=== PATIENT | male | born 1970 | race Caucasian/White ===

== ENCOUNTER 2017-11-20 23:44 | Observation (INO) | payer BC ==
[~2017-11-20] VITALS: Ht 172.7 cm; Wt 77.0 kg
[2017-11-20 23:50] VITALS: BP 124/65; PULSE 100; RESP 20; TEMP 98.6; O2SAT 99
[2017-11-21 00:25] VITALS: O2SAT 98
[2017-11-21 00:31] LABS: AUTOMATED NEUTROPHIL # 12.3 TH/MM3 (1.8-7.7); BASOPHIL # 0.2 TH/MM3 (0-0.2); BASOPHIL % 0.9 % (0.0-2.0); EOSINOPHIL # 0.6 TH/MM3 (0-0.4); EOSINOPHIL % 3.1 % (0.0-4.0); HEMATOCRIT 42.8 % (39.0-51.0); HEMOGLOBIN 15.1 GM/DL (13.0-17.0); MEAN CELL VOLUME 85.2 FL (80.0-100.0); MEAN CORPUSCULAR HGB CONC 35.2 % (32.0-36.0); MEAN PLATELET VOLUME 8.1 FL (7.0-11.0); MONOCYTE # 1.3 TH/MM3 (0-0.9); PLATELET COUNT 306 TH/MM3 (150-450); RED BLOOD COUNT 5.03 MIL/MM3 (4.50-5.90); WHITE BLOOD COUNT 18.4 TH/MM3 (4.0-11.0)
[2017-11-21 00:44] LABS: CHLORIDE 103 MEQ/L (98-107); SODIUM (NA) 138 MEQ/L (136-145)
[2017-11-21 00:47] LABS: ALBUMIN 3.8 GM/DL (3.4-5.0); BICARBONATE 30.2 MEQ/L (21.0-32.0); CALCIUM 8.6 MG/DL (8.5-10.1); GLUCOSE,RANDOM 101 MG/DL (74-106)
[2017-11-21 00:48] LABS: BLOOD UREA NITROGEN 13 MG/DL (7-18)
[2017-11-21 00:50] LABS: ALT (GPT) 29 U/L (12-78); AST (GOT) 15 U/L (15-37); GLOMERULAR FILTRATION RATE 71 ML/MIN (>89)
[2017-11-21 00:52] LABS: TOTAL BILIRUBIN ADULT 0.2 MG/DL (0.2-1.0); TOTAL PROTEIN 7.4 GM/DL (6.4-8.2)
[2017-11-21 00:53] LABS: ALKALINE PHOSPHATASE 111 U/L (45-117)
[2017-11-21] MEDS ORDERED: ONDANSETRON HCL 4 MG/2 ML VIAL IV PUSH ONE (01:15)
[2017-11-21 01:25] VITALS: BP 119/80; PULSE 88; RESP 16; O2SAT 99
[2017-11-21] MEDS ORDERED: SODIUM CHLOR 0.9% 1000 ML INJ 1,000 ML IV SCH (01:30)
[2017-11-21] MEDS ORDERED: SODIUM CHLORIDE 0.9% FLUSH 10 ML FLUSH IV FLUSH PRN ×2 (01:30→03:00)
--- NOTE | 2017-11-21 01:35 | PD ---
HPI Chief Complaint: GI Complaint Time Seen by Provider: 01:14 Travel History International Travel<30 days: No Contact w/Intl Traveler<30days: No Traveled to known affect area: No History of Present Illness HPI The patient is a 47-year-old male that around 7:40, right after the races, he began having periumbilical pain. He has a history of diverticulitis and urinary stones that he states the pain is in midline and not more on the right or on the left. He does feel some abdominal distention and has nausea and vomiting. His pain level is 9/10 and is a colicky pain that comes in waves and is sharp. He has never had any abdominal surgeries. His last bowel movement was 8:30 yesterday morning. He is not passing gas since his symptoms started. [facility] Past Medical History Diminished Hearing: No Kidney Stones: Yes Integumentary: Yes (Psoriasis) Tetanus Vaccination: Unknown Influenza Vaccination: No ?: Not Past Surgical History Other Surgery: Yes Social History Alcohol Use: Yes (occasional beer) Tobacco Use: Yes (1 pack per day) Substance Use: Yes (Marijuana) Allergies-Medications (Allergen,Severity, Reaction): Coded Allergies: No Known Allergies (Unverified , 11/20/17) Review of Systems Except as stated in HPI: all other systems reviewed are Neg Physical Exam Narrative GENERAL: The patient is alert, oriented 3 in moderate apparent distress with his abdominal discomfort. His vital signs show heart rate of 100 but otherwise normal. SKIN: Focused skin assessment warm/dry. HEAD: Atraumatic. Normocephalic. EYES: Pupils equal and round. No scleral icterus. No injection or drainage. ENT: No nasal bleeding or discharge. Mucous membranes pink and moist. NECK: Trachea midline. No JVD. CARDIOVASCULAR: Regular rate and rhythm. No murmur appreciated. RESPIRATORY: No accessory muscle use. Clear to auscultation. Breath sounds equal bilaterally. GASTROINTESTINAL: Abdomen soft, non-tender, slightly distended. Hepatic and splenic margins not palpable. Palpation over the periumbilical area completely reproduces patient's pain. MUSCULOSKELETAL: No obvious deformities. No clubbing. No cyanosis. No edema. NEUROLOGICAL: Awake and alert. No obvious cranial nerve deficits. Motor grossly within normal limits. Normal speech. PSYCHIATRIC: Appropriate mood and affect; insight and judgment normal. Data Data Last Documented VS Vital Signs Date Time Temp Pulse Resp B/P (MAP) Pulse Ox O2 Delivery O2 Flow Rate FiO2 11/21/17 01:25 88 16 119/80 (93) 99 Room Air 11/20/17 23:50 98.6 Orders Orders Complete Blood Count With Diff (11/21/17 00:09) Comprehensive Metabolic Panel (11/21/17 00:09) Urinalysis - C+S If Indicated (11/21/17 00:09) Iv Access Insert/Monitor (11/21/17 00:09) Oximetry (11/21/17 00:09) Lipase (11/21/17 00:09) Ondansetron Inj (Zofran Inj) (11/21/17 01:15) Ct Abd/Pel W Iv Contrast(Rout) (11/21/17 01:24) Ecg Monitoring (11/21/17 01:24) Sodium Chloride 0.9% Flush (Ns Flush) (11/21/17 01:30) Sodium Chlor 0.9% 1000 Ml Inj (Ns 1000 M (11/21/17 01:30) Prochlorperazine Inj (Compazine Inj) (11/21/17 02:00) Iohexol 350 Inj (Omnipaque 350 Inj) (11/21/17 02:24) Ketorolac Inj (Toradol Inj) (11/21/17 03:00) Labs Laboratory Tests Test 11/21/17 00:18 White Blood Count 18.4 TH/MM3 Red Blood Count 5.03 MIL/MM3 Hemoglobin 15.1 GM/DL Hematocrit 42.8 % Mean Corpuscular Volume 85.2 FL Mean Corpuscular Hemoglobin 30.0 PG Mean Corpuscular Hemoglobin Concent 35.2 % Red Cell Distribution Width 13.0 % Platelet Count 306 TH/MM3 Mean Platelet Volume 8.1 FL Neutrophils (%) (Auto) 67.0 % Lymphocytes (%) (Auto) 22.0 % Monocytes (%) (Auto) 7.0 % Eosinophils (%) (Auto) 3.1 % Basophils (%) (Auto) 0.9 % Neutrophils # (Auto) 12.3 TH/MM3 Lymphocytes # (Auto) 4.0 TH/MM3 Monocytes # (Auto) 1.3 TH/MM3 Eosinophils # (Auto) 0.6 TH/MM3 Basophils # (Auto) 0.2 TH/MM3 CBC Comment DIFF FINAL Differential Comment Blood Urea Nitrogen 13 MG/DL Creatinine 1.10 MG/DL Random Glucose 101 MG/DL Total Protein 7.4 GM/DL Albumin 3.8 GM/DL Calcium Level 8.6 MG/DL Alkaline Phosphatase 111 U/L Aspartate Amino Transf (AST/SGOT) 15 U/L Alanine Aminotransferase (ALT/SGPT) 29 U/L Total Bilirubin 0.2 MG/DL Sodium Level 138 MEQ/L Potassium Level 3.6 MEQ/L Chloride Level 103 MEQ/L Carbon Dioxide Level 30.2 MEQ/L Anion Gap 5 MEQ/L Estimat Glomerular Filtration Rate 71 ML/MIN Lipase 123 U/L [facility] Medical Decision Making Medical Screen Exam Complete: Yes Emergency Medical Condition: Yes Medical Record Reviewed: Yes Interpretation(s) The CBC shows a white count of 18,400 but is otherwise normal. The complete metabolic profile shows a GFR of 71 but is otherwise normal. The lipase is normal. The CT abdomen/pelvis shows nonspecific bowel gas pattern which may be a mild ileus or early small bowel obstruction. The appendix is normal and he does have mild hepatic steatosis. Differential Diagnosis Small bowel obstruction, diverticulitis, appendicitis, colitis Narrative Course The patient clinically has a small bowel obstruction which is likely very early. He does look in feel distended. He does have nausea along with vomiting. His pain is in the periumbilical area and the CT scan did not show any appendicitis or anything but a mild ileus versus small bowel obstruction. Physician Communication Physician Communication I discussed the patient with Dr. Saravia, the patient will be admitted to her under 23 hour observation. Diagnosis Primary Impression: Small bowel obstruction Admitting Information Admitting Physician Requests: Observation Car Zamudio MD Nov 21, 2017 01:35
[2017-11-21] MEDS ORDERED: PROCHLORPERAZINE INJ 10 MG/2 ML VIAL IV PUSH ONE (02:00)
[2017-11-21] MEDS ORDERED: IOHEXOL 350 MG/ML 10 ML VIAL (for RAD DIAG) IVCONTRAST ONE (02:24)
--- NOTE | 2017-11-21 02:39 | RADRPT ---
EXAM DATE/TIME: 11/21/2017 02:10 [facility] COMPARISON: No previous studies available for comparison. INDICATIONS : Right lower quadrant pain. Nausea. IV CONTRAST: 100 cc Omnipaque 350 (iohexol) IV ORAL CONTRAST: No oral contrast ingested. RADIATION DOSE: 8.91 CTDIvol (mGy) MEDICAL HISTORY : None SURGICAL HISTORY : None. ENCOUNTER: Initial ACUITY: 1 day PAIN SCALE: 9/10 LOCATION: Right lower quadrant TECHNIQUE: Volumetric scanning of the abdomen and pelvis was performed. Using automated exposure control and ad justment of the mA and/or kV according to patient size, radiation dose was kept as low as reasonably achievable to obtain optimal diagnostic quality images. DICOM format image data is available electro nically for review and comparison. FINDINGS: LOWER LUNGS: The visualized lower lungs are clear. LIVER: Homogeneous density without lesion. There is no dilation of the biliary tree. No calcified gallston es. There is mild hepatic steatosis. SPLEEN: Normal size without lesion. PANCREAS: Within normal limits. KIDNEYS: Normal in size and shape. There is no solid mass, stone or hydronephrosis. A simple cyst is present in the right kidney. ADRENAL GLANDS: Within normal limits. VASCULAR: There is no aortic aneurysm. BOWEL/MESENTERY: There are multiple loops of distal jejunum and proximal ileum which demonstrate multiple air-fluid le vels in nondilated measuring less than 3 cm in diameter. The proximal small bowel and distal ileum ap pear unremarkable. The colon is within normal limits with no wall thickening or inflammatory change. There is no free air or fluid. There is a normal appendix. ABDOMINAL WALL: Within normal limits. RETROPERITONEUM: There is no lymphadenopathy. BLADDER: No wall thickening or mass. REPRODUCTIVE: Within normal limits. INGUINAL: There is no lymphadenopathy or hernia. MUSCULOSKELETAL: Within normal limits for patient age. CONCLUSION: 1. Nonspecific bowel gas pattern which may represent a mild ileus and/or gastroenteritis. An early or partial small bowel obstruction is less likely. 2. Normal appendix. 3. Mild hepatic steatosis. Cyrus Millard MD on November 21, 2017 at 2:31 Board Certified Radiologist. This report was verified electronically.
[2017-11-21] MEDS ORDERED: MORPHINE SULFATE 2 MG/ML INJ IV PUSH PRN (03:00)
[2017-11-21] MEDS ORDERED: ACETAMINOPHEN 325 MG TAB PO PRN (03:00)
[2017-11-21] MEDS ORDERED: LACTULOSE SYRUP 20 GM/30 ML CUP PO PRN (03:00)
[2017-11-21] MEDS ORDERED: BISACODYL 10 MG SUPP RECTAL PRN (03:00)
[2017-11-21] MEDS ORDERED: SENNOSIDES 8.6 MG TAB PO PRN (03:00)
[2017-11-21] MEDS ORDERED: MAGNESIUM HYDROXIDE SUSP 30 ML CUP PO PRN (03:00)
[2017-11-21] MEDS ORDERED: ONDANSETRON HCL 4 MG/2 ML VIAL IVP PRN (03:00)
[2017-11-21] MEDS ORDERED: NALOXONE HCL 0.4 MG/ML AMP IV PUSH PRN (03:00)
[2017-11-21] MEDS ORDERED: KETOROLAC TROMETHAMINE 60 MG/2 ML (IM) VIAL IVP ONE (03:00)
[2017-11-21] MEDS: SODIUM CHLOR 0.9% 1000 ML INJ 1,000 ML IV SCH ×2 (03:55→11:06)
[2017-11-21 04:04] VITALS: BP 97/61; PULSE 74; RESP 18; O2SAT 95
[2017-11-21 04:12] LABS: BILIRUBIN, URINE NEG (NEG); BLOOD, URINE TRACE (NEG); GLUCOSE,URINE NEG (NEG); KETONE, URINE NEG (NEG); NITRITE,URINE NEG (NEG); PH, URINE 5.5 (5.0-8.5); URINE LEUKOCYTE ESTERASE NEG (NEG)
[2017-11-21 04:22] LABS: URINE COLOR YELLOW (YELLW/STRAW)
[2017-11-21 04:23] LABS: MUCUS URINE OCC /lpf (OCC); RBC, URINE 0-3 /hpf (0-3); SQUAMOUS EPITHELIAL CELL URINE 0-5 /hpf (0-5)
[2017-11-21] MEDS ORDERED: [UNRECOGNIZED DRUG - OTHER] TOPICAL (04:23)
[2017-11-21] MEDS ORDERED: [UNRECOGNIZED DRUG - OTHER] TOPICAL (04:23)
[2017-11-21 05:22] VITALS: BP 95/50; PULSE 79; RESP 14; TEMP 98.6; O2SAT 93
[2017-11-21 08:00] VITALS: BP 82/57; PULSE 56; RESP 18; TEMP 97.5; O2SAT 97
[2017-11-21 08:40] LABS: AUTOMATED NEUTROPHIL # 8.3 TH/MM3 (1.8-7.7); BASOPHIL # 0.1 TH/MM3 (0-0.2); BASOPHIL % 0.5 % (0.0-2.0); EOSINOPHIL # 0.2 TH/MM3 (0-0.4); EOSINOPHIL % 1.9 % (0.0-4.0); HEMATOCRIT 38.9 % (39.0-51.0); HEMOGLOBIN 12.8 GM/DL (13.0-17.0); LYMPH % 26.2 % (9.0-44.0); LYMPHOCYTE # 3.4 TH/MM3 (1.0-4.8); MEAN CELL VOLUME 86.1 FL (80.0-100.0); MEAN CORPUSCULAR HEMOGLOBIN 28.4 PG (27.0-34.0); MEAN CORPUSCULAR HGB CONC 32.9 % (32.0-36.0); MEAN PLATELET VOLUME 8.7 FL (7.0-11.0); MONO % 7.1 % (0.0-8.0); MONOCYTE # 0.9 TH/MM3 (0-0.9); NEUT % 64.3 % (16.0-70.0); PLATELET COUNT 254 TH/MM3 (150-450); RED BLOOD COUNT 4.51 MIL/MM3 (4.50-5.90); RED CELL DISTRIBUTION WIDTH 12.4 % (11.6-17.2); WHITE BLOOD COUNT 12.9 TH/MM3 (4.0-11.0)
[2017-11-21] MEDS ORDERED: SODIUM CHLORIDE 0.9% FLUSH 10 ML FLUSH IV FLUSH SCH (09:00)
[2017-11-21] MEDS ORDERED: DOCUSATE SODIUM 50 MG/SENNA 8.6 MG TAB PO SCH (09:00)
--- NOTE | 2017-11-21 09:57 | RADRPT ---
EXAM DATE/TIME: 11/21/2017 09:34 [facility] COMPARISON: CT ABDOMEN & PELVIS W CONTRAST, November 21, 2017, 2:10. INDICATIONS : Abdominal Pain MEDICAL HISTORY : None. SURGICAL HISTORY : None. ENCOUNTER: Initial ACUITY: 2 days PAIN SCORE: 9/10 LOCATION: Abdomen FINDINGS: There is residual IV contrast within the bladder. The exam demonstrates a mildly thickened loops of small bowel in the left upper abdomen. There are no findings to indicate bowel obstruction. No free air is seen. There is minimal atelectatic change at the right lung base. The bony structures are intact. CONCLUSION: 1. Benign-appearing bowel gas pattern. Shaan Brown MD on November 21, 2017 at 9:55 Board Certified Radiologist. This report was verified electronically.
[2017-11-21 12:00] VITALS: BP 98/57; PULSE 62; RESP 16; TEMP 98.6; O2SAT 96
--- NOTE | 2017-11-21 13:05 | HHI.HP ---
[facility]Staff Admission Diagnosis small bowel obstruction Diagnoses: Travel History International Travel<30 Days: No Contact w/Intl Traveler <30 Da: No Traveled to Known Affected Are: No History of Present Illness hx from patient, ER notes, and review of med records abdominal pain just started yesterday while at [employer] was having peanuts hx of divertuicluar no fever nausea, vomiting x 2 not sure of color no diarrhea still has pain even now no abdominal sx prior not diabetic have been constipated - last bm was tuesday doesnt think he had passed gas no longer vomiting or nauseous since arrival to ER has had colonoscopy- about 5 yrs ago was done in [place]- not sure when they told him to come back at - just was told of food habits re diverticular on vacation here has been eating out no one else is sick drove here from [place] on Tuesday night - did walk around, no calf pain or asymmetry Review of Systems Except as stated in HPI: all other systems reviewed are Neg Past Family Social History Past Medical History diverticulitis Past Surgical History sinus infection sx in his early 30s Allergies: Coded Allergies: No Known Allergies (Unverified , 11/20/17) Family History lost mom to pancreatic cancer older brother- stroke oldest brother- diabetic Social History smokes a pack a day no etoh abuse , only occasionally no drug abuse, just once or twice marijuana Physical Exam Vital Signs Vital Signs Date Time Temp Pulse Resp B/P (MAP) Pulse Ox O2 Delivery O2 Flow Rate FiO2 11/21/17 12:00 98.6 62 16 98/57 (71) 96 11/21/17 08:00 97.5 56 18 82/57 (65) 97 11/21/17 05:22 98.6 79 14 95/50 (65) 93 11/21/17 04:23 81 18 97 11/21/17 04:04 74 18 97/61 (73) 95 Room Air 11/21/17 01:25 88 16 119/80 (93) 99 Room Air 11/21/17 00:25 98 Room Air 11/21/17 00:03 18 11/20/17 23:50 98.6 100 20 124/65 (84) 99 Physical Exam GENERAL: This is a well-nourished, well-developed patient, in no apparent distress. SKIN: multiple psoriatic lesions throughout body HEAD: Atraumatic. Normocephalic. No temporal or scalp tenderness. EYES: No scleral icterus. No injection or drainage. ENT: Nose without bleeding, purulent drainage or septal hematoma. Airway patent. NECK: Trachea midline. No JVD CARDIOVASCULAR: Regular rate and rhythm without murmurs, gallops, or rubs. RESPIRATORY: Clear to auscultation. Breath sounds equal bilaterally. No wheezes , rales, or rhonchi. GASTROINTESTINAL: Abdomen soft,tenderness diffusely, nondistended. . voluntary guarding due to pain MUSCULOSKELETAL: Extremities without clubbing, cyanosis, or edema. No calf tenderness. NEUROLOGICAL: Awake and alert. Motor and sensory grossly within normal limits. Normal speech Laboratory Laboratory Tests Test 11/21/17 00:18 11/21/17 03:46 11/21/17 08:10 White Blood Count 18.4 12.9 Red Blood Count 5.03 4.51 Hemoglobin 15.1 12.8 Hematocrit 42.8 38.9 Mean Corpuscular Volume 85.2 86.1 Mean Corpuscular Hemoglobin 30.0 28.4 Mean Corpuscular Hemoglobin Concent 35.2 32.9 Red Cell Distribution Width 13.0 12.4 Platelet Count 306 254 Mean Platelet Volume 8.1 8.7 Neutrophils (%) (Auto) 67.0 64.3 Lymphocytes (%) (Auto) 22.0 26.2 Monocytes (%) (Auto) 7.0 7.1 Eosinophils (%) (Auto) 3.1 1.9 Basophils (%) (Auto) 0.9 0.5 Neutrophils # (Auto) 12.3 8.3 Lymphocytes # (Auto) 4.0 3.4 Monocytes # (Auto) 1.3 0.9 Eosinophils # (Auto) 0.6 0.2 Basophils # (Auto) 0.2 0.1 CBC Comment DIFF FINAL DIFF FINAL Differential Comment Blood Urea Nitrogen 13 Creatinine 1.10 Random Glucose 101 Total Protein 7.4 Albumin 3.8 Calcium Level 8.6 Alkaline Phosphatase 111 Aspartate Amino Transf (AST/SGOT) 15 Alanine Aminotransferase (ALT/SGPT) 29 Total Bilirubin 0.2 Sodium Level 138 Potassium Level 3.6 Chloride Level 103 Carbon Dioxide Level 30.2 Anion Gap 5 Estimat Glomerular Filtration Rate 71 Lipase 123 Urine Color YELLOW Urine Turbidity CLEAR Urine pH 5.5 Urine Specific [place] 1.036 Urine Protein NEG Urine Glucose (UA) NEG Urine Ketones NEG Urine Occult Blood TRACE Urine Nitrite NEG Urine Bilirubin NEG Urine Leukocyte Esterase NEG Urine RBC 0-3 Urine Squamous Epithelial Cells 0-5 Urine Mucus OCC Microscopic Urinalysis Comment CULT NOT INDICATED Result Diagram: 11/21/17 0810 11/21/17 0018 Imaging Last 48 hours Impressions Abdomen/Pelvis CT 11/21/17 0124 Signed Impressions: Service Date/Time: Tuesday, November 21, 2017 02:10 - CONCLUSION: 1. Nonspecific bowel gas pattern which may represent a mild ileus and/or gastroenteritis. An early or partial small bowel obstruction is less likely. 2. Normal appendix. 3. Mild hepatic steatosis. Cyrus Millard MD Abdomen X-Ray 11/21/17 0000 Signed Impressions: Service Date/Time: Tuesday, November 21, 2017 09:34 - CONCLUSION: 1. Benign-appearing bowel gas pattern. Shaan Brown MD Caprini VTE Risk Assessment Caprini VTE Risk Assessment: Mod/High Risk (score >= 2) Caprini Risk Assessment Model Point Value = 1 Point Value = 2 Point Value = 3 Point Value = 5 Age 41-60 Minor surgery BMI > 25 kg/m2 Swollen legs Varicose veins or History of unexplained or recurrent spontaneous Oral contraceptives or hormone replacement Sepsis (< 1 month) Serious lung disease, including pneumonia (< 1 month) Abnormal pulmonary function Acute myocardial infarction Congestive heart failure (< 1 month) History of inflammatory bowel disease Medical patient at bed rest Age 61-74 Arthroscopic surgery Major open surgery (> 45 min) Laparoscopic surgery (> 45 min) Malignancy Confined to bed (> 72 hours) Immobilizing plaster cast Central venous access Age >= 75 History of VTE Family history of VTE Factor V Leiden Prothrombin [id number] Lupus anticoagulant Anticardiolipin antibodies Elevated serum homocysteine Heparin-induced thrombocytopenia Other congenital or acquired thrombophilia Stroke (< 1 month) Elective arthroplasty Hip, pelvis, or leg fracture Acute spinal cord injury (< 1 month) Prophylaxis Regimen Total Risk Factor Score Risk Level Prophylaxis Regimen 0-1 Low Early ambulation 2 Moderate Order ONE of the following: *Sequential Compression Device (SCD) *Heparin 5000 units SQ BID 3-4 Higher Order ONE of the following medications: *Heparin 5000 units SQ TID *Enoxaparin/Lovenox 40 mg SQ daily (WT < 150 kg, CrCl > 30 mL/min) *Enoxaparin/Lovenox 30 mg SQ daily (WT < 150 kg, CrCl > 10-29 mL/min) *Enoxaparin/Lovenox 30 mg SQ BID (WT < 150 kg, CrCl > 30 mL/min) AND/OR *Sequential Compression Device (SCD) 5 or more Highest Order ONE of the following medications: *Heparin 5000 units SQ TID (Preferred with Epidurals) *Enoxaparin/Lovenox 40 mg SQ daily (WT < 150 kg, CrCl > 30 mL/min) *Enoxaparin/Lovenox 30 mg SQ daily (WT < 150 kg, CrCl > 10-29 mL/min) *Enoxaparin/Lovenox 30 mg SQ BID (WT < 150 kg, CrCl > 30 mL/min) AND *Sequential Compression Device (SCD) Assessment and Plan Assessment and Plan Impression gastroenteritis possible early bowel obstruction low bp- likely baseline, in a young, thin pt psoriasis Plan: iv hydration will give 1 L bolus now pain control with toradol pt really like to go home and was told that if he can eat and drink without persistent pain or nausea or vomiting, will discharge however, when nurse later approach him with menu to order food and pain medicine , he refused to even order food. He would like to go home no matter what and does not want to know whether he can tolerate pain and by mouth feeding. Therefore patient signed AMA. He has told both the nurse and myself that he would rather take a plane back to [place]. He has 2 children in [place] who is under his fiance's care while he is here for the race. He would like to get home to them. Discussed Condition With patient, nursing staff Melida Heredia MD Nov 21, 2017 13:05
[2017-11-21] MEDS ORDERED: KETO10 PO (13:29)
[2017-11-21] MEDS ORDERED: KETOROLAC TROMETHAMINE 30 MG/ML (IVP) VIAL IV PUSH PRN (13:30)
[2017-11-21] MEDS ORDERED: SODIUM CHLOR 0.9% 1000 ML INJ 1,000 ML IV ONE (13:30)
== END 2017-11-21 14:47 | disposition left against medical advice (07) ==
LOC: PHED 23:44 → PHEDA 11-21 03:00 → PH3A 11-21 04:32
PROVIDERS: ADMIT Internal Medicine; ATTEND Internal Medicine
DX: K56.609 Unspecified intestinal obstruction, unspecified as to partial versus complete obstruction (principal); K52.9 Noninfective gastroenteritis and colitis, unspecified; K76.0 Fatty (change of) liver, not elsewhere classified; L40.9 Psoriasis, unspecified; F17.210 Nicotine dependence, cigarettes, uncomplicated
CPT/HCPCS: 74019; 74177; 80053; 81001; 83690; 85025; 96361; 96374; 96375; 99285; G0378; J0780; J1885; J2405; J7030; Q9967